=== PATIENT | female | born 1980 | race Caucasian/White ===

== ENCOUNTER 2017-03-13 12:11 | Emergency (ER) | payer MEDICAID ==
[2017-03-13 12:31] VITALS: BMI 29.2
--- NOTE | 2017-03-13 13:16 | RAD ---
HISTORY: FEVER COMPARISON: None available. TECHNIQUE: Chest, one view. FINDINGS: Examination limited by habitus. LUNGS: No focal consolidation. Please note that chest x-ray has limited sensitivity for the detection of pulmonary masses. PLEURA: No significant pleural effusion identified. No definite pneumothorax . CARDIOVASCULAR: Heart size appears within normal limits. OSSEOUS STRUCTURES: No acute osseous abnormality identified. VISUALIZED UPPER ABDOMEN: Mild elevation of the right hemidiaphragm. OTHER FINDINGS: None. IMPRESSION: No focal consolidation, significant pleural effusion, or definite pneumothorax identified.
[2017-03-13 13:24] LABS: BASO % 0.1 % (0.0-2.0); EOS # 0.1 K/uL (0.0-0.7); EOS % 1.1 % (0.0-4.0); HEMOGLOBIN 13.3 g/dL (11.0-16.0); LYMPH # 0.6 K/uL (1.0-4.3); LYMPH % 5.7 % (20.0-40.0); MEAN CELL VOLUME 83.3 fL (81.0-99.0); MEAN CORPUSCULAR HEMOGLOBIN 28.5 pg (27.0-31.0); MEAN CORPUSCULAR HGB CONC 34.2 g/dL (33.0-37.0); MEAN PLATELET VOLUME 6.9 fL (7.2-11.7); MONO # 0.2 K/uL (0.0-0.8); MONO % 2.1 % (0.0-10.0); NEUT # 9.2 K/uL (1.8-7.0); PLATELET COUNT 269 K/uL (130-400); RBC 4.66 Mil/uL (3.80-5.20); RED CELL DISTRIBUTION WIDTH 16.6 % (11.5-14.5); WHITE BLOOD COUNT 10.1 K/uL (4.8-10.8)
--- NOTE | 2017-03-13 13:35 | C.PDOC ---
History Of Present Illness 36-year-old male, presents to the emergency department with complaints of headache, chills and nausea since this morning. Patient states she gets headaches occasionally, but this one is more intense than usual. Denies dizziness, back pain, numbness/weakness, vomiting, visual changes, sensory changes, speech changes, or any other associated symptoms. No other complaints at this time. Time Seen by Provider: 03/13/17 12:51 Chief Complaint (Nursing): Headache History Per: Patient History/Exam Limitations: no limitations Onset/Duration Of Symptoms: Days Current Symptoms Are (Timing): Still Present Severity: Moderate Past Medical History Reviewed: Historical Data, Nursing Documentation, Vital Signs Vital Signs: Last Vital Signs Temp 98.6 F 03/13/17 15:30 Pulse 109 H 03/13/17 15:30 Resp 16 03/13/17 15:30 BP 108/58 L 03/13/17 15:30 Pulse Ox 98 03/13/17 15:38 - Medical History PMH: Asthma Family History: States: No Known Family Hx - Social History Hx Alcohol Use: No Hx Substance Use: No - Immunization History Hx Tetanus Toxoid Vaccination: No Hx Influenza Vaccination: No Hx Pneumococcal Vaccination: No Review Of Systems Except As Marked, All Systems Reviewed And Found Negative. Constitutional: Positive for: Chills. Negative for: Fever Cardiovascular: Negative for: Chest Pain, Palpitations Respiratory: Negative for: Shortness of Breath Gastrointestinal: Positive for: Nausea. Negative for: Vomiting Neurological: Positive for: Headache. Negative for: Weakness, Numbness, Dizziness Physical Exam - Physical Exam Appears: Non-toxic, No Acute Distress (Mild) Skin: Warm, Dry, No Rash Head: Atraumatic, Normacephalic Eye(s): bilateral: Normal Inspection, PERRL, EOMI, Other (NO PHOTOPHOBIA) Nose: Normal Oral Mucosa: Moist Lips: Normal Appearing Neck: Normal ROM, Supple Cardiovascular: Rhythm Regular, No Murmur Respiratory: Normal Breath Sounds, No Accessory Muscle Use Extremity: Normal ROM Neurological/Psych: Oriented x3, Normal Speech, Normal Cranial Nerves, No Cerebellar Signs, Normal Motor, Normal Sensation, Other (NO FOCAL NEURO DEFICIT) ED Course And Treatment - Laboratory Results Result Diagrams: 03/13/17 13:17 03/13/17 13:17 ECG: Interpreted By Me, Viewed By Me ECG Interpretation: No Acute Changes Rate From EC O2 Sat by Pulse Oximetry: 98 (on RA) Pulse Ox Interpretation: Normal Progress - Re-Evaluation Re-evaluation Note: 03/13/17 13:45 CODE SEPSIS ACTIVATED 03/13/17 15:38 APPEARS COMFORTABLE IMPROVED FROM PRIOR. VSS. CO RESIDUAL SUAREZ BUT IMPROVED FROM [facility]IOR. NO PHOTOPHOBIA, NECK SUPPLE AMBUL WO DIFF. NEURO INTACT, AO3. - Data Reviewed Data Reviewed: Lab, Diagnostic imaging, EKG, Old records - Critical Care Citical Care: Excluding Proc Time Critical Care Time: 90 minutes Disposition Counseled Patient/Family Regarding: Studies Performed, Diagnosis, Need For Followup, Rx Given - Disposition Referrals: YOUR,PMD [Other] Disposition: HOME/ ROUTINE Disposition Time: 16:08 Condition: IMPROVED Prescriptions: Ondansetron ODT [Zofran ODT] 4 mg PO TID PRN #12 odt PRN Reason: Nausea/Vomiting Oseltamivir [Tamiflu] 75 mg PO BID #9 cap Instructions: Influenza (ED) Forms: [employer] (Djiboutian) - Clinical Impression Clinical Impression: Headache, Influenza - Scribe Statement The provider has reviewed the documentation as recorded by the Scribe (Soni Bates) All medical record entries made by the Scribe were at my direction and personally dictated by me. I have reviewed the chart and agree that the record accurately reflects my personal performance of the history, physical exam, medical decision making, and the department course for this patient. I have also personally directed, reviewed, and agree with the discharge instructions and disposition.
[2017-03-13 13:38] LABS: PROTHROMBIN TIME 11.6 SECONDS (9.7-12.2)
[2017-03-13 13:42] LABS: VENOUS BLOOD GAS BASE EXCESS -0.3 mmol/L (0.0-2.0); VENOUS BLOOD GAS PCO2 38 mmHg (40-60); VENOUS BLOOD GAS PO2 26 mm/Hg (30-55); VENOUS BLOOD PH 7.41 (7.32-7.43)
[2017-03-13 13:48] LABS: ALB/GLOB RATIO 1.4 (1.0-2.1); ALBUMIN 4.3 g/dL (3.5-5.0); ALT/SGPT 25 U/L (9-52); AST/SGOT 23 U/L (14-36); BLOOD UREA NITROGEN 10 mg/dL (7-17); CALCIUM 9.3 mg/dl (8.6-10.4); GFR AFRICAN-AMERICAN > 60; GFR NON-AFRICAN AMERICAN > 60; MAGNESIUM 1.4 mg/dL (1.6-2.3)
[2017-03-13 13:55] LABS: LYMPHOCYTE 6 % (20-40); MONOCYTE 2 % (0-10); NEUTROPHIL 92 % (50-75); PLATELET ESTIMATE NORMAL (NORMAL); TOTAL CELLS COUNTED 100
[2017-03-13 13:56] LABS: ANISOCYTOSIS SLIGHT; LARGE PLATELETS PRESENT; TOXIC GRANULATION PRESENT
[2017-03-13 14:01] LABS: SQUAMOUS EPITHIAL < 1 /hpf (0-5); URINE BILIRUBIN NEGATIVE (NEGATIVE); URINE BLOOD 3+ (NEGATIVE); URINE CLARITY Clear (Clear); URINE COLOR Colorless (YELLOW); URINE GLUCOSE (UA) NORMAL (Normal); URINE LEUKOCYTE ESTERASE NEG Leu/uL (Negative); URINE NITRATE NEGATIVE (NEGATIVE); URINE PROTEIN NEGATIVE (NEGATIVE); URINE UROBILINOGEN NORMAL mg/dL (0.2-1.0)
--- NOTE | 2017-03-13 15:28 | CT ---
PROCEDURE: CT HEAD WITHOUT CONTRAST. HISTORY: HEADACHE COMPARISON: None available. TECHNIQUE: Axial computed tomography images were obtained through the head/brain without intravenous contrast. Radiation dose: Total exam DLP = 1746.82 mGy-cm. This CT exam was performed using one or more of the following dose reduction techniques: Automated exposure control, adjustment of the mA and/or kV according to patient size, and/or use of iterative reconstruction technique. FINDINGS: HEMORRHAGE: No intracranial hemorrhage. BRAIN: No mass effect or edema. Bilateral basal ganglia calcifications. No atrophy or chronic microvascular ischemic changes. VENTRICLES: No hydrocephalus. CALVARIUM: Unremarkable. PARANASAL SINUSES: Unremarkable as visualized. No significant inflammatory changes. MASTOID AIR CELLS: Unremarkable as visualized. No inflammatory changes. OTHER FINDINGS: None. IMPRESSION: No acute intracranial pathology identified.
[2017-03-13 15:31] VITALS: TEMP 98.6
[2017-03-13 15:38] VITALS: O2SAT 98
[2017-03-13 15:40] LABS: VENOUS BLOOD GAS PCO2 40 mmHg (40-60); VENOUS BLOOD GAS PO2 32 mm/Hg (30-55)
[2017-03-13 16:42] VITALS: BP 101/51; PULSE 92; RESP 17
--- NOTE | 2017-03-14 23:38 | CARD ---
APPROVED REPORT EKG Measurement Heart [id number] <Conclusion> Sinus tachycardia Otherwise normal ECG
== END 2017-03-13 16:44 | disposition home or self-care (01) ==
LOC: C.ER 12:11
DX: J11.1 Influenza due to unidentified influenza virus with other respiratory manifestations (principal); R51 Headache
CPT/HCPCS: 36415; 70450; 71045; 80053; 81001; 82803; 83735; 84100; 85025; 85610; 85730; 87040; 87086; 87804; 93005; 96374; 99285; J1885; J7120

== ENCOUNTER 2017-10-23 12:31 | Emergency (ER) | payer MEDICAID ==
[2017-10-23 12:31] VITALS: BMI 29.2
[2017-10-23 12:45] VITALS: TEMP 97.6; O2SAT 100
--- NOTE | 2017-10-23 14:03 | C.PDOC ---
History Of Present Illness 36 y/o F p/w dizziness and fall yesterday. Patient reports dizziness which she describes as room spinning which is intermittent, occurs suddenly, and is exacerbated by head movement. She denies fever, vomiting, chest pain, dyspnea. She states that due to the vertigo yesterday, she lost her balance and fell and landed on her face, hands, and knees, all of which are now having pain. She denies LOC or confusion. She also reports that she is on her period, which is her second of the month but denies any associated pain. Time Seen by Provider: 10/23/17 13:10 Chief Complaint (Nursing): Dizziness/Lightheaded Past Medical History Vital Signs: Last Vital Signs Temp 97.6 F 10/23/17 15:50 Pulse 76 10/23/17 15:50 Resp 16 10/23/17 15:50 BP 115/80 10/23/17 15:50 Pulse Ox 100 10/23/17 15:50 - Medical History PMH: Asthma Family History: States: No Known Family Hx - Social History Hx Alcohol Use: No Hx Substance Use: No - Immunization History Hx Tetanus Toxoid Vaccination: Yes (2017) Hx Influenza Vaccination: No Hx Pneumococcal Vaccination: No Review Of Systems Except As Marked, All Systems Reviewed And Found Negative. Constitutional: Negative for: Fever Cardiovascular: Negative for: Chest Pain Respiratory: Negative for: Shortness of Breath Gastrointestinal: Negative for: Vomiting, Abdominal Pain Musculoskeletal: Positive for: Hand Pain, Leg Pain Skin: Positive for: Lesions Neurological: Positive for: Dizziness Physical Exam - Physical Exam Additional Physical Exam Comments: Constitutional: No acute distress. Head: Normocephalic. Facial edema and swelling with tenderness. Eyes: EOMI without diplopia. ENT: Moist mucous membranes. Neck: Supple. No midline tenderness. Cardiovascular: Regular rate. Radial pulse 2+ bilaterally. Chest: No tenderness. Respiratory: Clear to auscultation bilaterally. GI: Soft. Nontender. Nondistended. Back: No CVA tenderness. No midline tenderness. Musculoskeletal: L knee tenderness. Both knees with FROM. Bilateral wrist abrasion with FROM and no edema. No snuffbox tenderness bilaterally. Pelvis stable. Skin: Abrasions as above. Neurologic: Alert, no focal deficit. +[place] Hallpike. ED Course And Treatment - Laboratory Results Result Diagrams: 10/23/17 14:14 10/23/17 14:14 O2 Sat by Pulse Oximetry: 100 (RA) Pulse Ox Interpretation: Normal - Other Rad Knee X-Ray X-Ray: Read By Radiologist Interpretation: FINDINGS: BONES: Right Knee: No acute fracture. Left Knee: No acute fracture. JOINTS: Right Knee: Unremarkable. Left knee: Unremarkable. SOFT TISSUES: Right Knee: Normal. Left Knee: Normal. JOINT EFFUSION: Right Knee: None. Left Knee: None. OTHER FINDINGS: None. IMPRESSION: No demonstrated fracture or dislocation. Wrist X-Ray X-Ray: Read By Radiologist Interpretation: FINDINGS: BONES: Right wrist: No acute fracture. Left wrist : No acute fractured. JOINT SPACES: Right Wrist: Unremarkable. Left Wrist: Unremarkable. SOFT TISSUES: Right Wrist: Normal. Left Wrist: Normal. OTHER FINDINGS: None. IMPRESSION: No demonstrated fracture or dislocation. - CT Scan/US CT Head Other Rad Studies (CT/US): Read By Radiologist, Radiology Report Reviewed CT/US Interpretation: FINDINGS: HEMORRHAGE: No intracranial hemorrhage. BRAIN : No mass effect or edema. No atrophy or chronic microvascular ischemic changes. VENTRICLES: Unremarkable. No hydrocephalus. CALVARIUM: Unremarkable. PARANASAL SINUSES: Unremarkable as visualized. No significant inflammatory changes. MASTOID AIR CELLS: Unremarkable as visualized. No inflammatory changes. OTHER FINDINGS: None. IMPRESSION: No intracranial hemorrhage. Unremarkable examination. Maxillofacial CT Other Rad Studies (CT/US): Read By Radiologist, Radiology Report Reviewed CT/US Interpretation: FINDINGS: NASAL BONES: Unremarkable. ORBITS: Unremarkable. PARANASAL SINUSES/ MASTOIDS: Clear. MAXILLA: No fracture. Right maxillary retention cyst/ polyp. Incidentally noted bilateral maxillary periodontal disease. Recommend periodontal consultation. Apical lucency noted in a molar bilaterally. MANDIBLE/ TEMPOROMANDIBULAR JOINTS: Unremarkable. SKULL BASE: Unremarkable. TEMPORAL BONES: Middle ears and mastoid grossly unremarkable. OTHER FINDINGS: None. IMPRESSION: No evidence of maxillofacial fracture. Right maxillary retention cyst/ polyp. Bilateral maxillary periodontal disease. Medical Decision Making Medical Decision Making: FINDINGS: UTERUS: Measures 9.3 x 5.8 x 6.7 cm. Multi fibroid uterus. For example in the lower uterine segment there is an intramural fibroid measuring 3.0 x 2.4 x 3.0 cm. In the mid fundus, there is a subserosal fibroid measuring 3.7 x 3.3 x 3.7 cm. In the mid fundus, there is an intramural fibroid measuring 3.0 x 2.6 x 2.4 cm. A pedunculated fibroid arising from the right mid uterine body measures 3.1 x 3.1 x 2.9 cm. ENDOMETRIUM: Measures 5 mm in diameter. Unremarkable. CERVIX: No cervical abnormality identified. RIGHT OVARY: Measures 2.8 x 2.5 x 2.8 cm. No solid mass. Normal flow. LEFT OVARY: Measures 3.9 x 1.4 x 2.7 cm. No solid mass. Normal flow. FREE FLUID: Small amount of free fluid. OTHER FINDINGS: None. IMPRESSION: Multi fibroid uterus with customer assistance representative measurements as above and the largest measuring up to 3.7 cm. Disposition - Disposition Referrals: Andrew Cantu MD [Staff Provider] - Geri Leblanc MD [Staff Provider] - Disposition: HOME/ ROUTINE Disposition Time: 17:16 Condition: STABLE Prescriptions: Meclizine [Antivert] 25 mg PO TID PRN #20 tab PRN Reason: Dizziness Instructions: Uterine Fibroids (DC), Vertigo (a Type of Dizziness) Forms: [employer] (Lithuanian) - Clinical Impression Clinical Impression: BPPV (benign paroxysmal positional vertigo), Fibroids
[2017-10-23 14:19] LABS: BASO % 0.4 % (0.0-2.0); EOS # 0.3 K/uL (0.0-0.7); EOS % 4.3 % (0.0-4.0); HEMOGLOBIN 12.1 g/dL (11.0-16.0); LYMPH # 2.4 K/uL (1.0-4.3); LYMPH % 41.5 % (20.0-40.0); MEAN CELL VOLUME 85.5 fL (81.0-99.0); MEAN CORPUSCULAR HEMOGLOBIN 29.2 pg (27.0-31.0); MEAN CORPUSCULAR HGB CONC 34.2 g/dL (33.0-37.0); MEAN PLATELET VOLUME 6.4 fL (7.2-11.7); MONO # 0.3 K/uL (0.0-0.8); MONO % 4.3 % (0.0-10.0); NEUT # 2.9 K/uL (1.8-7.0); NEUT % 49.5 % (50.0-75.0); NRBC % 0.1 % (0.0-2.0); RBC 4.12 Mil/uL (3.80-5.20); RED CELL DISTRIBUTION WIDTH 15.3 % (11.5-14.5); WHITE BLOOD COUNT 5.9 K/uL (4.8-10.8)
[2017-10-23 14:23] LABS: SQUAMOUS EPITHIAL 3 /hpf (0-5); URINE BACTERIA RARE (<OCC); URINE BILIRUBIN NEGATIVE (NEGATIVE); URINE BLOOD 3+ (NEGATIVE); URINE CLARITY Clear (Clear); URINE COLOR Straw (YELLOW); URINE GLUCOSE (UA) NORMAL (Normal); URINE LEUKOCYTE ESTERASE TRACE Leu/uL (Negative); URINE PROTEIN NEGATIVE (NEGATIVE); URINE UROBILINOGEN NORMAL mg/dL (0.2-1.0)
[2017-10-23 14:35] LABS: HCG,QUALITATIVE URINE NEGATIVE (NEGATIVE)
--- NOTE | 2017-10-23 14:38 | CT ---
Date of service: 10/23/2017 PROCEDURE: CT HEAD WITHOUT CONTRAST. HISTORY: fall COMPARISON: 03/13/2017 TECHNIQUE: Axial computed tomography images were obtained through the head/brain without intravenous contrast. Radiation dose: Total exam DLP = 859.54 mGy-cm. This CT exam was performed using one or more of the following dose reduction techniques: Automated exposure control, adjustment of the mA and/or kV according to patient size, and/or use of iterative reconstruction technique. FINDINGS: HEMORRHAGE: No intracranial hemorrhage. BRAIN: No mass effect or edema. No atrophy or chronic microvascular ischemic changes. VENTRICLES: Unremarkable. No hydrocephalus. CALVARIUM: Unremarkable. PARANASAL SINUSES: Unremarkable as visualized. No significant inflammatory changes. MASTOID AIR CELLS: Unremarkable as visualized. No inflammatory changes. OTHER FINDINGS: None. IMPRESSION: No intracranial hemorrhage. Unremarkable examination.
[2017-10-23 14:41] LABS: ALB/GLOB RATIO 1.8 (1.0-2.1); ALT/SGPT 28 U/L (9-52); AST/SGOT 22 U/L (14-36); BLOOD UREA NITROGEN 8 mg/dL (7-17); GFR NON-AFRICAN AMERICAN > 60
--- NOTE | 2017-10-23 14:42 | CT ---
Date of service: 10/23/2017 PROCEDURE: CT MAXILLOFACIAL BONES WITHOUT CONTRAST HISTORY: fall COMPARISON: None available. TECHNIQUE: Contiguous axial CT images of the maxillofacial bones were obtained. Coronal and sagittal reformats were generated. Radiation dose: Total exam DLP = 781.37 mGy-cm. This CT exam was performed using one or more of the following dose reduction techniques: Automated exposure control, adjustment of the mA and/or kV according to patient size, and/or use of iterative reconstruction technique. FINDINGS: NASAL BONES: Unremarkable. ORBITS: Unremarkable. PARANASAL SINUSES/ MASTOIDS: Clear. MAXILLA: No fracture. Right maxillary retention cyst/ polyp. Incidentally noted bilateral maxillary periodontal disease. Recommend periodontal consultation. Apical lucency noted in a molar bilaterally. MANDIBLE/ TEMPOROMANDIBULAR JOINTS: Unremarkable. SKULL BASE: Unremarkable. TEMPORAL BONES: Middle ears and mastoid grossly unremarkable. OTHER FINDINGS: None. IMPRESSION: No evidence of maxillofacial fracture. Right maxillary retention cyst/ polyp. Bilateral maxillary periodontal disease.
--- NOTE | 2017-10-23 14:48 | RAD ---
Date of service: 10/23/2017 PROCEDURE: Bilateral Knee Radiographs. HISTORY: fall COMPARISON: None. FINDINGS: BONES: Right Knee: No acute fracture. Left Knee: No acute fracture. JOINTS: Right Knee: Unremarkable. Left knee: Unremarkable. SOFT TISSUES: Right Knee: Normal. Left Knee: Normal. JOINT EFFUSION: Right Knee: None. Left Knee: None. OTHER FINDINGS: None. IMPRESSION: No demonstrated fracture or dislocation.
--- NOTE | 2017-10-23 14:52 | RAD ---
Date of service: 10/23/2017 PROCEDURE: Bilateral Wrists Radiographs. HISTORY: fall COMPARISON: None. FINDINGS: BONES: Right wrist: No acute fracture. Left wrist: No acute fractured. JOINT SPACES: Right Wrist: Unremarkable. Left Wrist: Unremarkable. SOFT TISSUES: Right Wrist: Normal. Left Wrist: Normal. OTHER FINDINGS: None. IMPRESSION: No demonstrated fracture or dislocation.
[2017-10-23 15:50] VITALS: BP 115/80; PULSE 76; RESP 16
--- NOTE | 2017-10-23 17:14 | US ---
Date of service: 10/23/2017 HISTORY: vaginal bleeding COMPARISON: None available. TECHNIQUE: Grayscale, color Doppler and spectral evaluation the pelvis performed transabdominally and transvaginally FINDINGS: UTERUS: Measures 9.3 x 5.8 x 6.7 cm. Multi fibroid uterus. For example in the lower uterine segment there is an intramural fibroid measuring 3.0 x 2.4 x 3.0 cm. In the mid fundus, there is a subserosal fibroid measuring 3.7 x 3.3 x 3.7 cm. In the mid fundus, there is an intramural fibroid measuring 3.0 x 2.6 x 2.4 cm. A pedunculated fibroid arising from the right mid uterine body measures 3.1 x 3.1 x 2.9 cm. ENDOMETRIUM: Measures 5 mm in diameter. Unremarkable. CERVIX: No cervical abnormality identified. RIGHT OVARY: Measures 2.8 x 2.5 x 2.8 cm. No solid mass. Normal flow. LEFT OVARY: Measures 3.9 x 1.4 x 2.7 cm. No solid mass. Normal flow. FREE FLUID: Small amount of free fluid. OTHER FINDINGS: None. IMPRESSION: Multi fibroid uterus with public relations representative measurements as above and the largest measuring up to 3.7 cm.
== END 2017-10-23 17:33 | disposition home or self-care (01) ==
LOC: C.ER 12:31
DX: H81.10 Benign paroxysmal vertigo, unspecified ear (principal); D25.9 Leiomyoma of uterus, unspecified
CPT/HCPCS: 70450; 70486; 73100; 73562; 76830; 76856; 80053; 81001; 82948; 84703; 85025; 87086; 96372; 99285; J1885